=== PATIENT | female | born 2000 | race Two or more races ===

== ENCOUNTER 2022-12-01 00:34 | Emergency (ER) | payer OTHER ==
[~2022-12-01] VITALS: Ht 152.4 cm; Wt 65.8 kg
[2022-12-01] MEDS ORDERED: PRENATAL MULTI1 EAC6 (00:50)
[2022-12-01] MEDS ORDERED: PEPCID40 MG PO (05:50)
[2022-12-01] MEDS ORDERED: ONDANSETRON ODT4 MG PO (05:50)
== END 2022-12-01 06:05 ==
LOC: ER 00:34
DX: K80.20 Calculus of gallbladder without cholecystitis without obstruction (principal)

== ENCOUNTER 2022-12-03 00:13 | Emergency (ER) | payer OTHER ==
[~2022-12-03] VITALS: Ht 152.4 cm; Wt 65.8 kg
[~2022-12-03 00:13] MED LIST: ONDANSETRON ODT4 MG PO; PEPCID40 MG PO; PRENATAL MULTI1 EAC6
[2022-12-03] MEDS ORDERED: ACETAMINOPHEN650 M2 PO (02:16)
== END 2022-12-03 02:25 | disposition home or self-care (01) ==
LOC: ER 00:13
DX: O9A.212 Injury, poisoning and certain other consequences of external causes complicating pregnancy, second trimester (principal); T47.0X1A Poisoning by histamine H2-receptor blockers, accidental (unintentional), initial encounter; Z3A.18 18 weeks gestation of pregnancy; Y92.89 Other specified places as the place of occurrence of the external cause; K80.20 Calculus of gallbladder without cholecystitis without obstruction

== ENCOUNTER 2023-04-26 13:00 | Inpatient (IN) | payer OTHER ==
[~2023-04-26] VITALS: Ht 152.4 cm; Wt 4.1 kg
[~2023-04-26 13:00] MED LIST changes: +ACETAMINOPHEN650 M2 PO
[2023-05-12] MEDS ORDERED: IBUPROFEN800 MG PO (06:37)
== END 2023-05-12 14:09 | disposition home or self-care (01) | DRG 788 ==
LOC: OB/GYN 05-05 13:00 → LDR 05-09 05:27 → OB/GYN 05-09 05:27
PROVIDERS: ADMIT Specialist; ATTEND Specialist
PROC: 4A1HXCZ Monitoring of Products of Conception, Cardiac Rate, External Approach (ICD-10-PCS; 2023-05-09)
PROC: 10D00Z1 Extraction of Products of Conception, Low, Open Approach (ICD-10-PCS; principal; 2023-05-09 19:15)
DX: O62.0 Primary inadequate contractions (principal); O99.824 Streptococcus B carrier state complicating childbirth; Z3A.40 40 weeks gestation of pregnancy; Z37.0 Single live birth; Z20.822 Contact with and (suspected) exposure to COVID-19